=== PATIENT | female | born 1940 | race Caucasian/White ===

== ENCOUNTER 2016-06-09 20:14 | Emergency (ER) | payer BC ==
[~2016-06-09] VITALS: Ht 165.1 cm; Wt 68.0 kg
[2016-06-09] MEDS ORDERED: ZETIA10 MG PO (20:51)
[2016-06-09 22:13] LABS: HEMATOCRIT 41.7 % (37.0-47.0); HEMOGLOBIN 13.8 g/dl (12.0-16.0); IMMATURE GRANULOCYTES 0.1 % (0.0-1.0); MEAN CELL VOLUME 85.8 fL CALC (80.0-100.0); MEAN CORPUSCULAR HGB 28.4 pG CALC (26.0-32.0); MEAN CORPUSCULAR HGB CONC 33.1 g/L CALC (32.0-36.0); NEUT# 4.55 thou/uL (2.00-7.15); RED BLOOD COUNT 4.86 mill/uL (4.20-5.60); RED CELL DISTRI WIDTH 13.3 % (11.5-15.5)
[2016-06-09 22:14] LABS: URINE BILIRUBIN - DIPSTICK NEGATIVE (NEGATIVE); URINE BLOOD DIPSTICK TRACE-INTACT (NEGATIVE); URINE CLARITY CLEAR; URINE COLOR YELLOW; URINE GLUCOSE - DIPSTICK NEGATIVE (NEGATIVE); URINE KETONE NEGATIVE (NEGATIVE); URINE NITRITE - DIPSTICK NEGATIVE (Negative); URINE PROTEIN - DIPSTICK NEGATIVE (NEG-TRACE); URINE UROBILINOGEN - DIPSTICK 0.2 E.U./dL (0.2)
[2016-06-09 22:17] LABS: URINE LEUK ESTERASE SMALL (NEGATIVE)
[2016-06-09 22:23] LABS: URINE RBC 0-2 RBC/hpf (0-5); URINE SQUAMOUS EPITHELIAL CELL FEW EPI/hpf (0-FEW)
[2016-06-09 22:30] LABS: ALBUMIN 4.7 g/dL (3.2-5.0); ALKALINE PHOSPHATASE 69 u/l (38-126); ANION GAP 16 (6-22 (CALC)); BILIRUBIN, TOTAL 0.3 mg/dL (0.0-1.4); BUN 21 mg/dL (8-23); BUN/CREATININE RATIO 22 (12-20 (CALC)); CALCIUM 9.9 mg/dL (8.4-10.2); CARBON DIOXIDE 30 mmol/l (22-30); CHLORIDE 103 mmol/l (95-108); GFR 54 ML/MIN (>=60 (CALC)); GFR FOR AFR.AMER. > 60 ML/MIN (>=60 (CALC)); GLUCOSE 111 mg/dL (82-115); POTASSIUM 3.8 mmol/l (3.5-5.1); SGOT/AST 22 u/l (9-36); SGPT/ALT 31 u/l (11-66); SODIUM 145 mmol/l (137-146); TOTAL PROTEIN 8.4 g/dL (6.3-8.2)
[2016-06-09 22:39] LABS: MYOGLOBIN 20 ng/mL (0 - 62)
[2016-06-09] MEDS ORDERED: MACROBID100 MG PO (23:42)
[2016-06-09] MEDS ORDERED: NAPROSYN500 MG PO (23:42)
[2016-06-10 00:19] VITALS: BP 150/74
== END 2016-06-10 00:15 | disposition home or self-care (01) | DRG 690 ==
LOC: ED 20:14
DX: N39.0 Urinary tract infection, site not specified (principal); R07.81 Pleurodynia; E78.00 Pure hypercholesterolemia, unspecified; Z85.3 Personal history of malignant neoplasm of breast

== ENCOUNTER 2017-07-07 14:12 | Emergency (ER) | payer BC ==
[~2017-07-07] VITALS: Ht 165.1 cm; Wt 69.8 kg
[~2017-07-07 14:12] MED LIST: MACROBID100 MG PO; NAPROSYN500 MG PO; ZETIA10 MG PO
[2017-07-07] MEDS ORDERED: IBUPROFEN600 MG PO (15:13)
[2017-07-07] MEDS ORDERED: FLEXERIL PO (15:13)
[2017-07-07 15:16] VITALS: BP 165/82
== END 2017-07-07 15:21 | disposition home or self-care (01) | DRG 563 ==
LOC: ED 14:12
DX: S39.012A Strain of muscle, fascia and tendon of lower back, initial encounter (principal); R10.32 Left lower quadrant pain

== ENCOUNTER 2017-07-09 13:38 | Emergency (ER) | payer BC ==
[~2017-07-09] VITALS: Ht 165.1 cm; Wt 75.0 kg
[~2017-07-09 13:38] MED LIST changes: +FLEXERIL PO; +IBUPROFEN600 MG PO
[2017-07-09] MEDS ORDERED: AMBIEN5 MG PO (14:16)
[2017-07-09] MEDS ORDERED: MOTRIN400 MG PO (15:00)
[2017-07-09] MEDS ORDERED: ASPERCREME LIDOCA41 TOP (15:00)
[2017-07-09 15:05] VITALS: BP 121/66
== END 2017-07-09 15:05 | disposition home or self-care (01) | DRG 538 ==
LOC: ED 13:38
DX: S76.012A Strain of muscle, fascia and tendon of left hip, initial encounter (principal); W19.XXXA Unspecified fall, initial encounter